=== PATIENT | female | born 1985 | race African-American/Black ===

== ENCOUNTER 2016-10-07 22:08 | Emergency (ER) | payer MEDICAID ==
[~2016-10-07] VITALS: Ht 154.9 cm; Wt 70.0 kg
[~2016-10-07 22:08] MED LIST: PREN-142 PO
[2016-10-07 23:06] VITALS: BP 117/76
== END 2016-10-08 01:05 | disposition home or self-care (01) ==
LOC: ER 22:08
DX: J02.9 Acute pharyngitis, unspecified (principal); M54.2 Cervicalgia; Z90.49 Acquired absence of other specified parts of digestive tract
CPT/HCPCS: 87070; 87430; 99284

== ENCOUNTER 2016-12-24 13:25 | Emergency (ER) | payer MEDICAID ==
[~2016-12-24] VITALS: Ht 162.6 cm; Wt 69.0 kg
[2016-12-24] MEDS ORDERED: ONDANSETRON HCL 4MG/2ML VIAL IV ONE (15:00)
[2016-12-24] MEDS ORDERED: SODIUM CHLORIDE 0.9% 1,000 ML IV ONE (15:00)
[2016-12-24 15:27] LABS: BASOPHILS % 0.6 % (0.0-2.0); EOSINOPHILS % 0.4 % (0.0-5.0); HEMATOCRIT. 38.6 % (36.0-48.0); HEMOGLOBIN. 12.8 g/dL (12.0-16.0); LYMPHOCYTES % 17.2 % (20.0-50.0); MEAN CORPUSCULAR HEMOGLOBIN 26.5 pg (28.0-32.0); MEAN CORPUSCULAR VOLUME 80.2 fL (81.0-99.0); MEAN PLATELET VOLUME 7.5 fl (7.4-10.4); MONOCYTES % 3.8 % (2.0-8.0); PLATELET 231 x1000/uL (130-400); RED BLOOD CELL COUNT 4.81 mill/uL (4.2-5.4); RED CELL DISTRIBUTION WIDTH 14.3 % (11.6-14.6)
[2016-12-24 15:31] LABS: CHLORIDE 107 mEq/L (98-107)
[2016-12-24 15:40] LABS: CARBON DIOXIDE 24 mEq/L (21-32)
[2016-12-24 16:04] LABS: GLUCOSE URINE NEGATIVE (NEGATIVE); KETONES URINE 2+ (NEGATIVE); LEUKOCYTE ESTERASE URINE 1+ (NEGATIVE); NITRITE URINE NEGATIVE (NEGATIVE); OCCULT BLOOD URINE NEGATIVE (NEGATIVE); PROTEIN URINE NEGATIVE (NEGATIVE); SPECIFIC GRAVITY URINE 1.014 (1.005-1.030); UROBILINOGEN URINE 0.2 E.U./dL (0.2-1.0)
[2016-12-24 16:07] LABS: CLARITY URINE CLEAR (CLEAR); COLOR URINE YELLOW (YELLOW)
[2016-12-24 16:19] LABS: *AMPHETAMINES SCREEN URINE NEGATIVE (NEGATIVE); *BARBITURATES SCREEN URINE NEGATIVE (NEGATIVE); *BENZODIAZEPINES SCREEN URINE NEGATIVE (NEGATIVE); *COCAINE SCREEN URINE NEGATIVE (NEGATIVE); CANNABINOID URINE SCREEN NEGATIVE (NEGATIVE); METHADONE URINE SCREEN NEGATIVE (NEGATIVE); OPIATES URINE SCREEN NEGATIVE (NEGATIVE); PHENCYCLIDINE URINE SCREEN NEGATIVE (NEGATIVE)
[2016-12-24] MEDS ORDERED: SULFAMETHOXAZOLE/TRIMETHOPRIM 800/160MG TABLET PO ONE (19:00)
[2016-12-24] MEDS ORDERED: HYDROCODONE/ACETAMINOPHEN 5/325MG TABLET PO ONE (20:15)
[2016-12-24 20:45] VITALS: BP 100/65
== END 2016-12-24 20:53 | disposition home or self-care (01) ==
LOC: ER 16:00
DX: R73.03 Prediabetes (principal); E83.51 Hypocalcemia; E86.0 Dehydration; R11.2 Nausea with vomiting, unspecified; N39.0 Urinary tract infection, site not specified; R51 Headache; Z90.49 Acquired absence of other specified parts of digestive tract
CPT/HCPCS: 36415; 71010; 80053; 80305; 81001; 81025; 83036; 85025; 93005; 96361; 96374; 99285; J2405; J7030; Z7610

== ENCOUNTER 2017-04-18 17:49 | Emergency (ER) | payer MEDICAID ==
[~2017-04-18] VITALS: Ht 162.6 cm; Wt 75.0 kg
[2017-04-19] MEDS ORDERED: ONDANSETRON 4MG ODT PO ONE (01:45)
[2017-04-19] MEDS ORDERED: KETOROLAC 30MG/ML VIAL IM ONE (01:45)
[2017-04-19 05:58] VITALS: BP 118/79
== END 2017-04-19 06:02 | disposition home or self-care (01) ==
LOC: ER 18:11
DX: S97.102A Crushing injury of unspecified left toe(s), initial encounter (principal); Z90.49 Acquired absence of other specified parts of digestive tract; Z98.51 Tubal ligation status; Z91.048 Other nonmedicinal substance allergy status; W51.XXXA Accidental striking against or bumped into by another person, initial encounter; Y93.89 Activity, other specified; Y92.018 Other place in single-family (private) house as the place of occurrence of the external cause
CPT/HCPCS: 73630; 81025; 96372; 99284; J1885; Q0162

== ENCOUNTER 2017-09-09 10:03 | Emergency (ER) | payer MEDICAID ==
[~2017-09-09] VITALS: Ht 160 cm; Wt 64.0 kg
[2017-09-09 15:43] LABS: CLARITY URINE CLEAR (CLEAR); COLOR URINE YELLOW (YELLOW); KETONES URINE 1+ (NEGATIVE); LEUKOCYTE ESTERASE URINE NEGATIVE (NEGATIVE); NITRITE URINE NEGATIVE (NEGATIVE); OCCULT BLOOD URINE NEGATIVE (NEGATIVE); PH URINE 5.5 (4.5-8.0); PROTEIN URINE NEGATIVE (NEGATIVE); SPECIFIC GRAVITY URINE 1.026 (1.005-1.030); UROBILINOGEN URINE 0.2 E.U./dL (0.2-1.0)
[2017-09-09 15:48] LABS: BASOPHILS % 1.1 % (0.0-2.0); EOSINOPHILS % 3.8 % (0.0-5.0); HEMATOCRIT. 39.7 % (36.0-48.0); HEMOGLOBIN. 13.1 g/dL (12.0-16.0); LYMPHOCYTES % 36.7 % (20.0-50.0); MEAN CORPUSCULAR HEMOGLOBIN 26.7 pg (28.0-32.0); MEAN CORPUSCULAR VOLUME 80.6 fL (81.0-99.0); MEAN PLATELET VOLUME 7.9 fl (7.4-10.4); MONOCYTES % 9.2 % (2.0-8.0); NEUTROPHILS % 49.2 % (40.0-76.0); PLATELET 238 x1000/uL (130-400); RED BLOOD CELL COUNT 4.93 mill/uL (4.2-5.4)
[2017-09-09 15:51] LABS: CHLORIDE 107 mEq/L (98-107)
[2017-09-09 16:30] VITALS: BP 114/71
== END 2017-09-09 16:55 | disposition home or self-care (01) ==
LOC: ER 10:03
DX: R10.13 Epigastric pain (principal); R19.7 Diarrhea, unspecified; R11.0 Nausea; Z90.49 Acquired absence of other specified parts of digestive tract; Z98.51 Tubal ligation status
CPT/HCPCS: 36415; 80053; 81003; 81025; 83690; 85025; 99284

== ENCOUNTER 2017-10-09 13:59 | Emergency (ER) | payer MEDICAID ==
[~2017-10-09] VITALS: Ht 162.6 cm; Wt 66.0 kg
[2017-10-09] MEDS ORDERED: ACETAMINOPHEN 500MG TABLET PO ONE (16:30)
[2017-10-09 16:50] VITALS: BP 112/72
== END 2017-10-09 17:13 | disposition home or self-care (01) ==
LOC: ER 14:50
DX: H60.8X1 Other otitis externa, right ear (principal); Z90.49 Acquired absence of other specified parts of digestive tract; Z98.51 Tubal ligation status
CPT/HCPCS: 99283

== ENCOUNTER 2017-12-21 18:04 | Emergency (ER) | payer MEDICAID ==
[~2017-12-21] VITALS: Ht 162.6 cm; Wt 64.2 kg
[2017-12-21 19:44] LABS: BASOPHILS % 0.4 % (0.0-2.0); CHLORIDE 101 mEq/L (98-107); EOSINOPHILS % 3.4 % (0.0-5.0); HEMATOCRIT. 38.8 % (36.0-48.0); HEMOGLOBIN. 12.7 g/dL (12.0-16.0); LYMPHOCYTES % 32.5 % (20.0-50.0); MEAN CORPUSCULAR HEMOGLOBIN 26.6 pg (28.0-32.0); MEAN CORPUSCULAR VOLUME 81.4 fL (81.0-99.0); MEAN PLATELET VOLUME 7.9 fl (7.4-10.4); MONOCYTES % 6.7 % (2.0-8.0); PLATELET 255 x1000/uL (130-400); RED BLOOD CELL COUNT 4.76 mill/uL (4.2-5.4); RED CELL DISTRIBUTION WIDTH 14.1 % (11.6-14.6)
[2017-12-21 19:49] LABS: INR 1.1; PROTHROMBIN TIME 10.9 sec (9.4-11.6)
[2017-12-21 19:53] LABS: HCG SCREEN NEGATIVE
[2017-12-21] MEDS ORDERED: FAMOTIDINE 20MG TABLET PO ONE (22:30)
[2017-12-21] MEDS ORDERED: ONDANSETRON 4MG ODT PO ONE (22:30)
[2017-12-21] MEDS ORDERED: MAGNESIUM/ALUMINUM HYDROXIDE/SIMETHICONE 30ML UDC PO ONE (22:30)
[2017-12-22 00:41] LABS: CLARITY URINE CLEAR (CLEAR); COLOR URINE YELLOW (YELLOW); KETONES URINE NEGATIVE (NEGATIVE); LEUKOCYTE ESTERASE URINE NEGATIVE (NEGATIVE); NITRITE URINE NEGATIVE (NEGATIVE); OCCULT BLOOD URINE NEGATIVE (NEGATIVE); PH URINE 7.5 (4.5-8.0); PROTEIN URINE NEGATIVE (NEGATIVE); SPECIFIC GRAVITY URINE 1.011 (1.005-1.030); UROBILINOGEN URINE 0.2 E.U./dL (0.2-1.0)
[2017-12-22] MEDS ORDERED: IOHEXOL-300 100 ML BOTTLE ONE (01:52)
[2017-12-22 03:45] VITALS: BP 97/67
== END 2017-12-22 03:50 | disposition home or self-care (01) ==
LOC: ER 21:02
DX: R10.30 Lower abdominal pain, unspecified (principal); Z90.49 Acquired absence of other specified parts of digestive tract; Z98.51 Tubal ligation status; Z91.09 Other allergy status, other than to drugs and biological substances
CPT/HCPCS: 36415; 74177; 80053; 81003; 81025; 83690; 84703; 85025; 85610; 99285; Q0162; Q9967; Z7610

== ENCOUNTER 2019-08-15 20:39 | Emergency (ER) | payer MEDICAID ==
[~2019-08-15] VITALS: Ht 172.7 cm; Wt 63.0 kg
[~2019-08-15 20:39] MED LIST changes: -PREN-142 PO; +PRENATAL ONE T1 EACH PO
[2019-08-15] MEDS ORDERED: SODIUM CHLORIDE 0.9% 1,000 ML IV ONE (21:38)
[2019-08-15] MEDS ORDERED: MORPHINE SULFATE 4 MG/ML CPJ (NOT FOR IM USE) IV STA (21:38)
[2019-08-15] MEDS ORDERED: ONDANSETRON HCL 4MG/2ML INJ IV STA (21:38)
[2019-08-16 00:16] LABS: HEMATOCRIT. 40.5 % (36.0-48.0); MEAN CORPUSCULAR HEMOGLOBIN 26.8 pg (28.0-32.0); MEAN CORPUSCULAR VOLUME 83.3 fL (81.0-99.0); PLATELET 273 x1000/uL (130-400); RED BLOOD CELL COUNT 4.86 mill/uL (4.2-5.4); RED CELL DISTRIBUTION WIDTH 14.4 % (11.6-14.6)
[2019-08-16 00:22] LABS: PROTHROMBIN TIME 10.7 sec (9.6-11.0)
[2019-08-16 00:23] LABS: CHLORIDE 106 mEq/L (98-107)
[2019-08-16 00:28] LABS: CLARITY URINE CLEAR (CLEAR); COLOR URINE YELLOW (YELLOW); KETONES URINE 1+ (NEGATIVE); LEUKOCYTE ESTERASE URINE TRACE (NEGATIVE); NITRITE URINE NEGATIVE (NEGATIVE); OCCULT BLOOD URINE NEGATIVE (NEGATIVE); PH URINE >=9.0 (4.5-8.0); PROTEIN URINE 1+ (NEGATIVE); SPECIFIC GRAVITY URINE 1.026 (1.005-1.030)
[2019-08-16 00:34] VITALS: BP 125/68
[2019-08-16 02:05] LABS: PLATELET ESTIMATE NORMAL
== END 2019-08-16 02:03 | disposition home or self-care (01) ==
LOC: ER 20:39
DX: R10.13 Epigastric pain (principal); R19.7 Diarrhea, unspecified
CPT/HCPCS: 36415; 76705; 80053; 81003; 81025; 83690; 85025; 85610; 93005; 96361; 96374; 96375; 99284; J2270; J2405; J7030; Z7610